=== PATIENT | female | born 1950 | race African-American/Black ===

== ENCOUNTER 2017-12-13 13:03 | Emergency (ER) | payer OTHER ==
[2017-12-13] MEDS ORDERED: Lisinopril 20 MG TAB ONE (14:10)
[2017-12-13] MEDS ORDERED: Bacitracin Zinc 1 Packet ONE (14:17)
--- NOTE | 2017-12-13 14:50 | RAD ---
RIGHT KNEE 4 VIEWS: CLINICAL HISTORY: Contusion to right knee with patellar pain. FINDINGS: There is patellar enthesophyte formation. Mild joint capsular distention of the suprapatellar bursa present. There is no acute fracture or dislocation. Minimal osteophytosis is present. IMPRESSION: 1. No acute osseous abnormality. 2. Mild joint capsular distention. 3. Prominent patellar enthesophytes and minute osteophytosis. POS: [facility]
== END 2017-12-13 14:31 | disposition home or self-care (01) ==
LOC: NAV ERS 13:03
DX: S80.01XA Contusion of right knee, initial encounter (principal); I16.0 Hypertensive urgency; I10 Essential (primary) hypertension; F17.210 Nicotine dependence, cigarettes, uncomplicated; W18.30XA Fall on same level, unspecified, initial encounter

== ENCOUNTER 2023-09-03 10:45 | Emergency (ER) | payer SELFPAY ==
[2023-09-03] MEDS ORDERED: Ipratropium/Albuterol 3 ML NEB ONE (11:53)
== END 2023-09-03 12:30 | disposition home or self-care (01) ==
LOC: NAV ERS 10:45
DX: J20.9 Acute bronchitis, unspecified (principal); I10 Essential (primary) hypertension; F17.210 Nicotine dependence, cigarettes, uncomplicated
CPT/HCPCS: 71046; 93005; 94640; J7620